=== PATIENT | female | born 2005 | race African-American/Black ===

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

== ENCOUNTER 2024-03-09 13:31 | Emergency (ER) | payer OTHER | END 2024-03-09 14:30 | disposition home or self-care (01) | LOC: CSHERS 13:31 | DX: S93.402A Sprain of unspecified ligament of left ankle, initial encounter (principal); W19.XXXA Unspecified fall, initial encounter | CPT/HCPCS: 99283 ==

== ENCOUNTER 2024-03-30 19:30 | Inpatient (IN) | payer OTHER ==
[~2024-03-30 19:30] MED LIST: Bupivacaine/Epinephrine 0.25% 30 ML VIAL ONE; Lidocaine 1% (PF) 30 ML VIAL SC PRN; Methylergonovine 0.2 MG/ML VIAL IM PRN; Misoprostol 200 MCG TAB PR PRN; Promethazine HCl 25 MG/ML VIAL IM PRN; Tranexamic Acid 1,000 MG/10 ML VIAL IVP PRN; hydrALAZINE 20 MG/ML VIAL SLOW IVP PRN
[2024-03-30] MEDS ORDERED: Penicillin G Potassium 5 MILL.UNITS in Sodium Chloride 0.9% 100 ML IVPB SCH ×2 (21:00→23:35)
[2024-03-30] MEDS ORDERED: Oxytocin 30 units/NS 500 ML 500 ML IV SCH ×2 (21:00)
[2024-03-30 21:22] VITALS: BMI 27.1
[2024-03-30 22:22] LABS: Hematocrit 35.4 % (34.9-44.5); Hemoglobin 12.2 g/dL (12.0-15.5); Mean Corpuscular HGB CONC 34.5 g/dL (32.0-36.0); Mean Corpuscular Hemoglobin 26.9 pg (27.0-33.0); Mean Platelet Volume 11.7 fL (7.4-10.4); Platelet Count 207 10x3/uL (150-450); RBC Distribution Width 18.7 % (11.5-14.5); Red Blood Cell (RBC) Count 4.54 10x6/uL (3.90-5.03); White Blood Cell (WBC) Count 7.4 10x3/uL (3.5-10.5)
[2024-03-30] MEDS: Misoprostol 100 MCG TAB VAG SCH (22:39)
[2024-03-30] MEDS ORDERED: Penicillin G 2.5 MILL.units 2.5 MILL.UNITS in Premix 1 BAG IVPB PRN (22:41)
[2024-03-30] MEDS ORDERED: Penicillin G Potassium 5 MILL.UNITS in Sodium Chloride 0.9% 100 ML IVPB PRN (22:41)
[2024-03-30 22:46] LABS: HBsAg Index 0.24 S/CO (0-0.99); Hep B Surf Ag - L&D Non-Reactive S/CO (NonReactive)
[2024-03-30 22:47] LABS: Syphilis Antibody Nonreactive (Nonreactive); Syphilis Antibody Index 0.05 S/CO (<1.00 Non-Reactive)
[2024-03-31] MEDS ORDERED: Penicillin G 2.5 MILL.units 2.5 MILL.UNITS in Premix 1 BAG IVPB SCH ×2 (01:00→09:00)
[2024-03-31] MEDS ORDERED: Acetaminophen 500 MG TAB PO PRN (02:28)
[2024-03-31] MEDS: Acetaminophen 500 MG TAB PO PRN (02:45)
[2024-03-31] MEDS: fentaNYL 50 mcg/mL 1 mL Vial SLOW IVP PRN (03:23)
[2024-03-31] MEDS: Lactated Ringer's 1,000 ML IV SCH (04:44)
[2024-03-31] MEDS: Penicillin G Potassium 5 MILL.UNITS VIAL ONE (04:57)
[2024-03-31] MEDS ORDERED: Penicillin G Potassium 5 MILL.UNITS in Sodium Chloride 0.9% 100 ML IVPB SCH (05:00)
[2024-03-31] MEDS: fentaNYL/Ropivacaine Epidural 100 ML ONE (05:27)
[2024-03-31] MEDS ORDERED: Acetaminophen 325 MG TAB PO PRN (05:35)
[2024-03-31] MEDS ORDERED: diphenhydrAMINE 50 MG/ML VIAL IVP PRN (05:35)
[2024-03-31] MEDS ORDERED: Ondansetron PF 4 MG/2 ML Vial IVP PRN (05:35)
[2024-03-31] MEDS ORDERED: ePHEDrine Sulfate 50 MG/10 ML VIAL SLOW IVP PRN (05:35)
[2024-03-31] MEDS ORDERED: Naloxone HCl 0.4 mg/ml Vial IVP PRN ×2 (05:35)
[2024-03-31] MEDS ORDERED: Promethazine HCl 25 MG/ML VIAL IM PRN (05:35)
[2024-03-31] MEDS ORDERED: Moisturizing Cream (Eucerin) 113 GM JAR TOP PRN (05:35)
[2024-03-31] MEDS ORDERED: Lactated Ringer's 500 ML IV PRN (05:35)
[2024-03-31] MEDS ORDERED: fentaNYL 2 mcg/Ropivacaine 0.2% Epidural 100 ML CADD EPIDURAL SCH (05:45)
[2024-03-31] MEDS ORDERED: Communication Order-Pharmacy FS SCH (05:45)
[2024-03-31] MEDS: Ondansetron PF 4 MG/2 ML Vial IVP PRN (05:52)
[2024-03-31] MEDS ORDERED: hydrALAZINE 20 MG/ML VIAL SLOW IVP PRN (11:07)
[2024-03-31] MEDS ORDERED: diphenhydrAMINE 25 MG CAP PO PRN (11:07)
[2024-03-31] MEDS ORDERED: Benzocaine-Menthol 82.5 ML CAN TOP PRN (11:07)
[2024-03-31] MEDS ORDERED: Milk Of Magnesia 30 ML UDCUP PO PRN (11:07)
[2024-03-31] MEDS ORDERED: Bisacodyl 10 MG SUPP PR PRN (11:07)
[2024-03-31] MEDS: Penicillin G 2.5 MILL.units 2.5 MILL.UNITS in Premix 1 BAG IVPB SCH (12:26)
[2024-03-31] MEDS: Ibuprofen 800 MG TAB PO SCH (14:27)
[2024-03-31] MEDS: Ferrous Sulfate 325 MG TAB PO SCH (19:49)
[2024-03-31] MEDS: Docusate 100 MG CAP PO SCH (21:04)
[2024-04-01 04:20] LABS: Hematocrit 32.6 % (34.9-44.5); Hemoglobin 11.3 g/dL (12.0-15.5)
[2024-04-01] MEDS: Prenatal Vitamin 1 TAB PO SCH (08:56)
[2024-04-02 07:42] VITALS: BP 124/79; TEMP 97.9
== END 2024-04-02 12:30 | disposition home or self-care (01) | DRG 807 ==
LOC: CSHLD 20:45 → CSHPP 03-31 11:30
PROVIDERS: ADMIT Obstetrics & Gynecology; ATTEND Obstetrics & Gynecology
PROC: 10E0XZZ Delivery of Products of Conception, External Approach (ICD-10-PCS; principal; 2024-03-31)
PROC: 0HQ9XZZ Repair Perineum Skin, External Approach (ICD-10-PCS; 2024-03-31)
DX: O99.824 Streptococcus B carrier state complicating childbirth (principal); Z37.0 Single live birth; Z3A.39 39 weeks gestation of pregnancy; O70.0 First degree perineal laceration during delivery; O99.52 Diseases of the respiratory system complicating childbirth; O99.02 Anemia complicating childbirth; Z79.82 Long term (current) use of aspirin; Z14.8 Genetic carrier of other disease
CPT/HCPCS: 36415; 51702; 85014; 85018; 85027; 86780; 86850; 86900; 86901; 87340; J2405; J2540; J3010; J7120

== ENCOUNTER 2024-06-26 02:00 | Emergency (ER) | payer OTHER | END 2024-06-26 02:33 | disposition home or self-care (01) | LOC: CSHERS 02:00 | DX: J06.9 Acute upper respiratory infection, unspecified (principal); B97.89 Other viral agents as the cause of diseases classified elsewhere | CPT/HCPCS: 99283 ==

== ENCOUNTER 2024-07-04 17:45 | Emergency (ER) | payer OTHER ==
[2024-07-04] MEDS ORDERED: Acetaminophen 500 MG TAB ONE (18:19)
[2024-07-04] MEDS ORDERED: Ketorolac Tromethamine 30 MG (1 mL) VIAL ONE (18:19)
== END 2024-07-04 19:29 | disposition home or self-care (01) ==
LOC: CSHERS 17:45
DX: R07.89 Other chest pain (principal); R10.13 Epigastric pain; Z55.6 Problems related to health literacy
CPT/HCPCS: 71046; 87428; 93005; 96372; J1885

== ENCOUNTER 2024-07-09 20:55 | Emergency (ER) | payer OTHER ==
[2024-07-09] MEDS ORDERED: HYDROcodone/Acetaminophen 5/325 mg Tablet ONE (21:48)
== END 2024-07-09 22:34 | disposition home or self-care (01) ==
LOC: CSHERS 20:55
DX: S62.336A Displaced fracture of neck of fifth metacarpal bone, right hand, initial encounter for closed fracture (principal); W22.01XA Walked into wall, initial encounter
CPT/HCPCS: 26600